=== PATIENT | male | born 1995 | race African-American/Black ===

== ENCOUNTER 2018-11-12 20:41 | Emergency (ER) | payer MEDICAID, OTHER ==
[2018-11-12] MEDS: HYDROCODONE/APAP (5/325) TAB PO (22:22)
== END 2018-11-13 00:21 | disposition home or self-care (01) ==
LOC: FTE 11-13 00:21
DX: S00.83XA Contusion of other part of head, initial encounter (principal); F17.210 Nicotine dependence, cigarettes, uncomplicated; V49.59XA Passenger injured in collision with other motor vehicles in traffic accident, initial encounter
CPT/HCPCS: 70450; 73630-LT; 99284-25